=== PATIENT | female | born 1940 | race Caucasian/White ===

== ENCOUNTER 2021-12-24 20:30 | Emergency (ER) | payer MEDICARE, SELFPAY ==
[2021-12-24] VITALS (8 sets, daily range): BP systolic 146–207; BP diastolic 62–106; PULSE 54–80; RESP 12–18; TEMP 37.4; O2SAT 98–100; BMI 19.0
--- NOTE | 2021-12-24 20:33 | XRR_ITS ---
PROCEDURE INFORMATION: Exam: XR Right Wrist Exam date and time: 12/24/2021 8:51 PM Age: 81 years old Clinical indication: Injury or trauma; Blunt trauma (contusions or hematomas); Wrist; Right; Patient HX: Fall from standing this evening. C/O pain with deformity. ; Additional info: Fall injury TECHNIQUE: Imaging protocol: Radiologic exam of the Right wrist. Views: 3 or more views. COMPARISON: No relevant prior studies available. FINDINGS: Bones/joints: Acute impacted distal radius fracture. Ventral apex angulation deformity with dorsal angulation of the articular surface. Diffuse osseous demineralization. 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 Soft tissues: Distal forearm soft tissue swelling. XR/XR wrist RT min 3V* [id number] IMPRESSION: Acute right distal radius fracture as described.
--- NOTE | 2021-12-24 21:09 | ED_ITS ---
HPI - Fall General: Chief Complaint: Fall Stated Complaint: Fall/Rt wrist pain Time Seen by Provider: 12/24/21 20:55 Source: patient and family History of Present Illness: 81-year-old female who fell today on an outstretched hand. She injured her right wrist. She complains of pain and swelling. She has been icing no other pain or injury. She is not anticoagulated. complaint: fall Onset (ago): minute(s) Fall from: standing Fall witnessed: yes, by family Place fall occurred: home Loss of consciousness: None Prolonged down time: no Symptoms prior to fall: none Context: tripped/slipped Location of injury - extremities: Right: forearm Severity: moderate Associated symptoms-after fall: Denies chest pain Review of Systems Const: Denies: fever(s) Card: Denies: chest pain Resp: Denies: dyspnea PFSH ED PFSH: Social History Smoking and tobacco status: never smoked Physical Exam Const: GENERAL APPEARANCE: cooperative; not ill appearing and not frail appearing HENMT: COMMON NORMALS: normocephalic, atraumatic and Normal external nose present HEAD & SCALP: normocephalic and atraumatic FACE & SINUS: normal facial exam and face symmetric NOSE: Normal external nose present Eye: COMMON NORMALS: Equal, round and reactive pupils present and EOMs intact bilaterally PUPIL: Yes Equal, round and reactive pupils present Neck/C-Spine: COMMON NORMALS: full ROM GENERAL: Yes trachea midline CERVICAL SPINE: No Cervical spine tenderness Chest: CHEST: Yes Symmetrical chest wall rise Resp: COMMON NORMALS: normal respiratory effort, No use of accessory muscles and clear to auscultation bilaterally AUSCULTATION: clear to auscultation bi laterally Cardio: COMMON NORMALS: regular rate and regular rhythm RATE: regular rate RHYTHM: regular rhythm GI: COMMON NORMALS: Normal to inspection, nondistended, normoactive bowel sounds present and Soft to palpation PALPATION: Yes Soft to palpation Extremity: OTHER: Exam of the right upper extremity reveals right wrist swelling and deformity. There is tenderness over the distal radius. No distinct carpal tenderness. There is some slight ecchymosis present capillary refill and pulses are normal. Sensation is intact distally. Procedures Orthopedic Fracture Reduction Fracture #1: Time Out Performed: Yes Side: right Fracture Reduction Location: radius Analgesia: procedural sedation Technique: direct manipulation and traction/counter-traction Post Reduction X-rays Demonstrate: anatomical reduction Post-reduction neuro exam: intact Post-reduction vascular exam: intact Splint Applied: Yes Patient Tolerated Procedure: well and no complications Procedural Sedation Indication: fracture/dislocation reduction ASA Class: II Preparation: manager monitoring applied, pulse oximeter, capnometry used, supplemental O2 applied, suction/airway equipment at bedside and IV secured Midazolam: IV Midazolam dose (mg): 1 IV Etomidate dose (mg): 10 Patient Tolerated Procedure: well and no complications Complications: none Course Vital Signs: Vital signs: Vital Signs Temperature 99.4 F 12/24/21 20:38 Pulse Rate 80 12/24/21 20:38 Respiratory Rate 18 12/24/21 20:38 Blood Pressure 168/83 12/24/21 20:38 Pulse Oximetry 99 12/24/21 20:38 Oxygen Delivery Me thod 12/24/21 20:38 MDM - Fall Medical Decision Making ,Patient elected undergo conscious sedation with closed reduction of a distal radius this evening. This was accomplished without complication and postreduction x-ray shows essential anatomic alignment of the distal radius fracture. She is placed in a sugar-tong splint, and asked to follow-up with orthopedics. Lab Data Radiology Impressions Wrist X-Ray 12/24/21 21:16 IMPRESSION: Reduced distal radius fracture. Discharge Plan Discharge Patient Disposition: Home Clinical Impression: Distal radial fracture Condition: Stable Prescriptions: New hydrocodone-acetaminophen 5-325 mg tablet 1 tab PO Q8H PRN (Reason: pain) Qty: 10 0RF No Action ciprofloxacin-dexamethasone [Ciprodex] 0.3-0.1 % drops,suspension 4 drp otic (ear) BID Qty: 7.5 1RF Discharge Orders: Discharge ED (Routine); Ordered 12/24/21 Ordered By: Rinku Zafar Referrals: Mohamud Christiansen DO [Physician] - 4-7 days Ryan Ragland MD [Primary Care Provider] - Patient Instructions: Wrist Fracture in Adults (ED), Opioid Safety Activity Restrictions/Additional Instructions: Stay in splint until seen by orthopedics. Call the orthopedic clinic tomorrow, let them know you were seen here with a wrist fracture that was reduced, and that you need an appointment to be seen this week. You may ice through the splint. Pain medication for severe pain. Return for any problems Coding Level of Care Code ED Telegraph Service Clerk for Figueroa Patel Exam Comprehensive
--- NOTE | 2021-12-24 21:16 | XRR_ITS ---
PROCEDURE INFORMATION: Exam: XR Right Wrist Exam date and time: 12/24/2021 9:20 PM Age: 81 years old Clinical indication: Injury or trauma; Fall; Blunt trauma (contusions or hematomas); Wrist; Right; Patient HX: Check S/P reduction. ; Additional info: Post reduc TECHNIQUE: Imaging protocol: Radiologic exam of the Right wrist. Views: 1 or 2 views. COMPARISON: CR (UP EX, ) 12/24/2021 8:51 PM FINDINGS: Bones/joints: Demineralized bones. 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 Redemonstration of distal radius fracture although alignment is improved and relatively anatomic. Soft tissues: Diffuse soft tissue swelling. XR/XR wrist RT 2V [id number] IMPRESSION: Reduced distal radius fracture.
[2021-12-24] MEDS: ondansetron 2 mg/ML SDV 2 mL 4 MG IVP (21:28)
[2021-12-24] MEDS: midazolam 1 mg/mL INJ 2 mL IVP (21:40)
--- NOTE | 2021-12-24 22:14 | PC.NURSE ---
Conscious Sedation Pre Vitals @ 2130 HR: 70 RR: 14 O2: 98% RA BP: 152/72 Versed @ 9 Vitals HR: 72 RR: 16 O2: 100% 2L BP: 146/73 Etomidate @ 2144 Vitals HR: 64 RR: 12 O2: 100% 2L BP: 207/106 Post Vitals @ 2151 HR: 54 RR: 12 O2: 98% RA BP 178/86 Vitals @ 215 HR: 55 RR: 12 O2: 98% RA BP: 183/84 Vitals @ 1 HR: 62 RR: 12 O2: 100% RA BP: 161/62
== END 2021-12-24 22:40 | disposition home or self-care (01) ==
PROVIDERS: Emergency Provider Emergency Medicine; PCP Family Medicine
DX: S52.501A Unspecified fracture of the lower end of right radius, initial encounter for closed fracture (principal); W19.XXXA Unspecified fall, initial encounter
CPT/HCPCS: 25605; 36416; 73100; 73110; 82962; 96374; 99152; 99285; J2250; J2405; J3490

== ENCOUNTER → 2021-12-28 13:32 | Outpatient (BNVA) | payer MEDICARE, SELFPAY | PROVIDERS: PCP Family Medicine; Visit Provider Physician Assistant | DX: S62.101A Fracture of unspecified carpal bone, right wrist, initial encounter for closed fracture; W19.XXXA Unspecified fall, initial encounter | CPT/HCPCS: 73110 ==

== ENCOUNTER 2021-12-28 14:42 | Emergency (ER) | payer MEDICARE, SELFPAY ==
[2021-12-28 14:47] LABS: Glucose Point of Care 132 mg/dL (70-110)
== END 2021-12-28 15:13 | disposition home or self-care (01) ==
PROVIDERS: Emergency Medicine; Emergency Provider Family Medicine; PCP Family Medicine
DX: Z53.21 Procedure and treatment not carried out due to patient leaving prior to being seen by health care provider (principal)
CPT/HCPCS: 36416; 82962; G0463

== ENCOUNTER → 2022-01-02 13:29 | Outpatient (BNVA) | payer MEDICARE, SELFPAY | PROVIDERS: PCP Family Medicine; Visit Provider Physician Assistant | DX: S52.509A Unspecified fracture of the lower end of unspecified radius, initial encounter for closed fracture (principal); X58.XXXA Exposure to other specified factors, initial encounter | CPT/HCPCS: 73100; 73630 ==

== ENCOUNTER 2022-01-02 14:33 | Outpatient (CLI) | payer MEDICARE, SELFPAY | END 2022-01-02 14:34 | disposition home or self-care (01) | LOC: SPT 14:34 | PROVIDERS: PCP Family Medicine; Visit Provider Physician Assistant | DX: Z46.89 Encounter for fitting and adjustment of other specified devices (principal); S92.352D Displaced fracture of fifth metatarsal bone, left foot, subsequent encounter for fracture with routine healing; X58.XXXD Exposure to other specified factors, subsequent encounter; S52.501A Unspecified fracture of the lower end of right radius, initial encounter for closed fracture; S92.352A Displaced fracture of fifth metatarsal bone, left foot, initial encounter for closed fracture | CPT/HCPCS: 28470; 97760; 99203; 99204; L4361 ==

== ENCOUNTER 2022-01-05 07:54 | Day surgery (SDC) | payer MEDICARE, SELFPAY ==
[2022-01-04 10:00] VITALS: BMI 18.4
--- NOTE | 2022-01-04 10:15 | ECG_ITS ---
[facility] Test Date: 2022-01-04 Pat Name: Manuela Zamora Department: Room: Gender: Female Applied Exercise Physiologist: : 1940 Requested By: Benedicto Gutierrez Order Number: [id number] Eagle MD: Merari Jorge M.D. Measurements Intervals [place] Rate: 61 P: 75 MD: 146 QRS: 14 QRSD: 97 T: 70 QT: 388 QTc: 391 Interpretive Statements SINUS RHYTHM POSSIBLE LEFT ATRIAL ENLARGEMENT [-0.1mV P-WAVE IN V1/V2] No previous ECG available for comparison Electronically Signed On 01-04-2022 18:55:08 CDT by Merari Jorge M.D. [id number]
--- NOTE | 2022-01-04 11:04 | ANES.PREANE2 ---
Pre-Anesthetic Assessment Height/Weight: Height 1.65 m Weight 50.349 kg Preop Diagnosis: right radius distal fracture Operation Date: 01/05/22 08:30 Proposed Procedures p ORIF Wrist ORIF Distal Radius 94565(Right) - Mohamud Christiansen DO Familial anesthetic complications: None Was Beta Ag taken within 24 hours: N/A Was Clonidine taken within 24 hours: N/A Social No alcohol and No tobacco Exam alert, oriented x 3, clear to auscultation bilaterally and regular rate & rhythm Airway Submandibular: within normal limits Cervical ROM: within normal limits Mallampati: Class I Dentition: full History/ROS No significant complaints Pulmonary labyrinthitiis of righ ear Denies COPD, AIDE CV/HEM None reported METS > 4 Denies CP, PR, CAD, stents, arrythmmia None reported Hepatic None reported GI None reported Metabolic None reported Musc/skel None reported Neuropsych None reported Denies LOC/head trauma with fall Anesthetic Plan ASA status: 1 Anesthesia: Anesthesia Evaluation and General Other: We discussed risk and benefits of general anesthesia including PONV, sore throat (sometimes severe), corneal abrasion, positioning and peripheral nerve injuries, life threatening allergic reaction, post operative ICU admission requiring prolonged intubation, stroke, heart attack, , and rare incidences of recall. Patient consents to proceed with general anesthesia. We discussed risk and benefits of nerve block for post op pain control including management of pain and titration of pain medications as signs/symptoms of nerve block wearing off begin to appear and/or prior bed. We discussed risk of failed nerve block, vascular injury or other vital structure injury, abscess/infection, LAST, and nerve injury. Plan general anesthesia, patient offered but patient declines nerve block. Risk of > 500 ml blood loss (7ml/kg in children): No Medications/Allergies Home Medications Medication Instructions Recorded Confirmed Last Taken Type hydrocodone 5 mg-acetaminophen 325 1 tab PO Q8H PRN pain #10 tabs 12/24/21 01/04/22 Unknown Rx mg tablet omega 5-cyp-mge-fish oil 100 1 cap PO DAILY 12/28/21 01/04/22 Unknown History mg-160 mg-1,000 mg capsule (Fish Oil) fixed boot #1 ea 01/02/22 01/02/22 Unknown Rx Allergies Allergy/AdvReac Type Severity Reaction Status Date / Time No Known Allergies Allergy Verified 01/02/22 13:47 [facility] Anesthesia Social History Smoking and tobacco status: never smoked Data Anesthesia Cardiac Studies: No Data to Display
[2022-01-05] VITALS (8 sets, daily range): BP systolic 137–178; BP diastolic 80–95; PULSE 60–77; RESP 14–18; TEMP 36.2–36.8; O2SAT 93–100
--- NOTE | 2022-01-05 | XR_ITS ---
WS: [id number] XR wrist RT 2V [id number] REASON FOR EXAM: orif right wrist FINDINGS: Bohler surface plate and screw fixation of distal radial metaphyseal transverse fracture. Fracture fragments and surgical appliances are in proper position and alignment. XR/XR wrist RT 2V [id number] IMPRESSION: Open reduction and fixation of distal right radial fracture as above.
--- NOTE | 2022-01-05 | SCC_ITS ---
Procedure: ORIF of Right distal radius fracture extra-articular 17.1 seconds of fluoroscopic guidance, for a cumulative dose of 0.24 mGy, was provided to Dr. Christiansen by the radiology department. C-arm images of the right wrist were saved for the patient's permanent record. [facility] DIVISIONMaycol
[2022-01-05] MEDS: sodium chloride 0.9% 1,000 ML 30 ML IV (08:16)
--- NOTE | 2022-01-05 08:32 | P.ANESUD_ITS ---
Pre-Anesthetic Update Pre-Anesthetic Assessment: Date of Surgery/Procedure: 01/05/22 Preop Kari gnosis: Right distal radius fracture Proposed Procedure: Operation Date: 01/05/22 09:40 Proposed Procedures p ORIF Wrist ORIF Distal Radius 41451(Right) - Mohamud Christiansen, DO Any changes to Pre-Anesthetic Assessment?: No Last Intake: Intake Last Liquid Date 01/04/22 Last Liquid Time 19:00 Last Solid Date 01/04/22 Last Solid Time 19:00 Vitals: Temperature 97.2 F L 01/05/22 08:01 Temperature Source Temporal Artery S can 01/05/22 08:01 Pulse Rate 60 01/05/22 08:01 Respiratory Rate 18 01/05/22 08:01 Blood Pressure 159/80 01/05/22 08:01 Blood Pressure Sakshi n 106 01/05/22 08:01 Pulse Oximetry 99 01/05/22 08:01 Oxygen Delivery Me thod 01/05/22 08:06 Exam: Pre-Anes Outpt Exam: alert, oriented x 3, clear to auscultation bilaterally and regular rate & rhythm Cardiac Studies: No Data to Display
--- NOTE | 2022-01-05 09:07 | W.PM.OPSUD ---
Surgery/Procedure H&P Update DATE OF PROCEDURE: January 05, 2022 DATE H&P PERFORMED: 01/02/22 H&P UPDATE INFORMATION: I have reviewed H&P completed within last 30 days, I have examined patient prior to procedure and No changes to prior documentation PREOP DIAGNOSIS: Right distal radius fracture PLANNED PROCEDURE: Operation Date: 01/05/22 09:40 Proposed Procedures p ORIF Wrist ORIF Distal Radius 30848(Right) - Mohamud Christiansen DO
[2022-01-05] MEDS: ceFAZolin 2,000 MG in sodium chloride 0.9% (plus) 50 ML 100 MG IV (09:25)
--- NOTE | 2022-01-05 10:26 | SUR.OPER ---
1003 1% lidocaine 10ml injected to right wrist by Grover Adams
--- NOTE | 2022-01-05 10:51 | P.OP_ITS ---
Operative Report Date of procedure: January 05, 2022 Pre-op diagnosis: Preop Diagnosis Right distal radius fracture Post-op diagnosis: same Surgeon: Mohamud Christiansen Radiology Interventional Physician: Sanket Adams Radiology Interventional Physician: The operating room surgical technologist, Sanket Adams, MEREDITH was needed for his expertise with fracture care. He was important and necessary throughout the procedure to complete in a safe and timely manner. He assisted with patient positioning prepping and draping tissue retraction suctioning of the operative field protection of the critical structures and tissue closure Estimated blood loss (mL): 5 Procedure: ORIF of Right distal radius fracture extra-articular Patient was brought the op pseudomeningoceles placed in the supine position legs appear well-padded patient was prepped and draped also fashion. Skin incision made over the volar aspect of the right distal radius after tourniquet was brought up. The FCR and radial artery were identified the interval was dissected out the fracture was identified fracture was reduced and a Boyd plate was placed. 3 screws were placed in the distal aspect of the plate after the fracture was reduced and then 2 screws in the proximal part of plate proximal to the fracture. AP lateral fluoroscopy ensured the fracture and hardware in good position wounds were irrigated closed with Vicryl's and Monocryl suture. Sterile dressings applied patient was placed in a volar splint and transferred to the PACU in stable condition.
[2022-01-05] MEDS: HYDROcodone-acetaminophen 5-325 mg Tablet 1 TAB PO (11:05)
--- NOTE | 2022-01-05 14:16 | ANE.PACU2 ---
Inpatient post-anesthesia follow up: Airway intact: Yes Vital signs: Temperature 97.5 F Pulse Rate 71 Respiratory Rate 18 Blood Pressure 173/90 Pulse Oximetry 98 Oxygen Delivery Me thod Room Air Oxygen Flow Rate 6 Fraction of Inspir ed Oxygen Hydration adequate: Yes Nausea and vomiting: No Pain level: 1 Mental status: Baseline
== END 2022-01-05 11:29 | disposition home or self-care (01) ==
PROVIDERS: PCP Family Medicine; Visit Provider Orthopaedic Surgery
PROC: (CPT 25607; principal; 2022-01-05 09:30)
DX: S52.501A Unspecified fracture of the lower end of right radius, initial encounter for closed fracture (principal); W19.XXXA Unspecified fall, initial encounter
CPT/HCPCS: 25607; 73100; 76000; 93005; C1713; J1100; J2405; J2704; J3010; J3490; J7030

== ENCOUNTER → 2022-01-18 11:04 | Outpatient (BNVA) | payer MEDICARE, SELFPAY | PROVIDERS: PCP Family Medicine; Visit Provider Physician Assistant | DX: S92.352D Displaced fracture of fifth metatarsal bone, left foot, subsequent encounter for fracture with routine healing (principal); S52.501D Unspecified fracture of the lower end of right radius, subsequent encounter for closed fracture with routine healing; X58.XXXD Exposure to other specified factors, subsequent encounter | CPT/HCPCS: 73110; 73630; 99024 ==

== ENCOUNTER → 2022-01-25 09:41 | Outpatient (BNVA) | payer MEDICARE, SELFPAY | PROVIDERS: PCP Family Medicine; Visit Provider Physician Assistant | DX: S52.501D Unspecified fracture of the lower end of right radius, subsequent encounter for closed fracture with routine healing (principal); S92.352D Displaced fracture of fifth metatarsal bone, left foot, subsequent encounter for fracture with routine healing; X58.XXXD Exposure to other specified factors, subsequent encounter | CPT/HCPCS: 99024; 99213 ==

== ENCOUNTER → 2022-02-22 11:10 | Outpatient (BNVA) | payer MEDICARE, SELFPAY | PROVIDERS: PCP Family Medicine; Visit Provider Physician Assistant | DX: S52.591D Other fractures of lower end of right radius, subsequent encounter for closed fracture with routine healing (principal); S92.352D Displaced fracture of fifth metatarsal bone, left foot, subsequent encounter for fracture with routine healing; X58.XXXD Exposure to other specified factors, subsequent encounter | CPT/HCPCS: 73110; 73630; 99213 ==

== ENCOUNTER 2023-06-28 13:30 | Outpatient (CLI) | payer MEDICARE, SELFPAY ==
--- NOTE | 2023-06-28 13:36 | XR_ITS ---
WS: [id number] SCREENING DEXA SCAN [employer] CLINICAL INFORMATION: AGE RELATED OSTEOPOROSIS COMPARISON: None. FINDINGS: The L1-L4 bone mineral density measures 0.802. This corresponds to a T score score of -3.3 and Z scor e of -1.1. Left forearm bone mineral density measures 0.336. This corresponds to a T score of -6.2 and Z score o f -3.3. IMPRESSION: Osteoporosis lumbar spine. Osteoporosis LEFT forearm. .
== END 2023-06-28 13:31 | disposition home or self-care (01) ==
LOC: RAD 13:30
PROVIDERS: PCP Family Medicine; Visit Provider Family Medicine
DX: Z13.820 Encounter for screening for osteoporosis (principal); M81.0 Age-related osteoporosis without current pathological fracture
CPT/HCPCS: 77080